=== PATIENT | female | born 1940 | race Caucasian/White ===

== ENCOUNTER 2023-08-07 12:40 | Emergency (ER) | payer MEDICARE, OTHER, SELFPAY ==
[2023-08-07 12:48] VITALS: BP 229/109
[2023-08-07 13:16] VITALS: BMI 20.9
[2023-08-07 13:17] VITALS: BP 204/101
[2023-08-07 13:51] LABS: % Basophils 0.4 % (0-2); % Eosinophils 0.4 % (0-6); % Immature Granulocytes 0.3 % (0-0.5); % Monocytes 8.1 % (1.7-9.3); % Neutrophils 70.8 % (42.2-75.2); Absolute Lymphocytes 1.4 10^3/uL (1.2-3.4); Absolute Monocytes 0.6 10^3/uL (0.1-0.6); Absolute Neutrophils 4.9 10^3/uL (1.4-6.5); Hematocrit 40.4 % (37.0-47.0); Hemoglobin 14.3 g/dL (12.0-16.0); Mean Corp Hgb Conc. 35.4 g/dL (33.0-37.0); Mean Corpuscular Hgb 32.3 pg (27.0-31.0); Mean Corpuscular Volume 91.2 fL (81.0-99.0); Nucleated Red Blood Cells % 0 %; Platelet Count 212 10^3/uL (130-400); Red Blood Cell Count 4.43 10^6/uL (4.20-5.40); White Blood Cell Count 6.9 10^3/uL (4.8-10.8)
[2023-08-07 14:00] VITALS: BP 199/77
[2023-08-07 14:23] VITALS: BP 215/91
[2023-08-07 15:00] VITALS: BP 216/82
[2023-08-07 15:00] LABS: Blood Urea Nitrogen 12 mg/dl (7-17); Calcium 8.8 mg/dl (8.4-10.2); Carbon Dioxide 25 mmol/L (22-30); Chloride 100 mmol/L (98-107); Estimated Creatinine Clearance 67 ml/min; Glucose 91 mg/dl (70-99); Sodium 131 mmol/L (135-145); eGFR > 60.00
--- NOTE | 2023-08-07 15:11 | ED.GENMED ---
History of Present Illness
General
Chief Complaint: Heart Rate Problem
Time Seen by Provider: 08/07/23 13:24
Travel History
Have you had any contact with someone who has COVID-19?: No
Do you have any symptoms of coronavirus? Fever > 100 degrees, chills, cough, shortness of breath, sore throat, loss of taste or smell, muscle aches, or headache?: No
History of Present Illness
History of Present Illness:
82-year-old female with history of hypertension presents to the emergency department for evaluation of heart palpitations. To follow with her primary care physician over the past 4 to 6 months for uncontrolled hypertension. Currently on diltiazem
120 mg controlled release. While at her doctor's office today she noted having heart palpitations and due to and unavailable EKG machine she was sent to the ER to evaluate for cardiac arrhythmia. Currently has no symptoms. Denies chest pain or
dyspnea. Denies any stimulant drug use.
Review of Systems
Review of Systems
Allergies reviewed?: Yes
All Other Systems: ROS reviewed and negative except as documented in HPI and ROS
Phy Exam
Physical Exam
Physical Exam:
GEN: Well appearing, NAD, WDWN
Eyes: PERRLA, EOMs intact, no scleral icterus
HENT: NCAT, oral mucosa moist, no JVD
Lungs: CTAB, no wheezes, rales, rhonchi, normal chest wall excursion
Cardiac: RRR, 2/6 systolic ejection murmur
Abdomen: S, NT, ND, NABS, no masses or hepatosplenomegaly
Neuro: AO x 3, no focal deficits to BUE/BLE, normal sensation throughout
MSK: No gross deformity or ecchymosis. No edema. No digital clubbing
Skin: No rashes, petechiae. Normal color, no pallor or jaundice.
Psych: Calm, cooperative, proper hygiene
Course
Orders/Labs/Results
Orders:
Orders
08/07/23 12:47
EKG [Electrocardiogram (*1)] Urgent
Reason for Study: Atrial Fibrillation
EKG- Treatment ONCE
08/07/23 13:37
CBC/With Diff [Complete Blood Count/With Diff] Urgent
08/07/23 14:25
Basic Metabolic Panel Urgent
Abnormal Lab Results
08/07/23 08/07/23
13:37 14:25
MCH 32.3 H pg
(27.0-31.0)
MPV 11.0 H fL
(7.4-10.4)
Lymphocytes % 20.0 L %
(20.5-51.1)
Sodium 131 L mmol/L
(135-145)
08/07/23 13:37
08/07/23 14:25
Vital Signs
Initial and Last Documented VS:
Initial Vital Signs
Temp Pulse Resp BP Pulse Ox
98.0 F 100 16 229/109 98
08/07/23 12:48 08/07/23 12:48 08/07/23 12:48 08/07/23 12:48 08/07/23 12:48
Last Documented Vital Signs
Temp Pulse Resp BP Pulse Ox
98.0 F 79 17 204/101 98
08/07/23 12:48 08/07/23 13:45 08/07/23 13:45 08/07/23 13:17 08/07/23 13:45
MDM/Problems Addressed
MDM/Problems Addressed:
Patient with no evidence for cardiac dysrhythmia here. She has noted to have a systolic murmur that needs outpatient cardiology follow-up. Holter monitor as an outpatient given the transient nature of her symptoms. She is markedly hypertensive
here but with no evidence for hypertensive urgency requiring emergent antihypertensive use. Patient will be uptitrated on her outpatient antihypertensives and recommend close primary care as well as cardiology follow-up
Comment
Comment:
EKG independently interpreted by me shows a normal sinus rhythm at a rate of [address] changes concerning for ischemia
*Critical Care Note
Total Time (30-74mins, 75-104mins- exclusive of procedures): Not Applicable
ED Attending Note
-
Portions of this chart may have been created with voice recognition software.� Occasional wrong word or��sound alike� substitutions may have occurred due to the inherent limitations of voice recognition software.
Discharge Plan
Departure
Patient Disposition: Home (Routine Discharge)
Date of Disposition: 08/07/23
Time of Disposition: 15:11
Patient with high blood pressure during this ER visit?: Yes
Discharge Problem:
Heart palpitations, Hypertension, uncontrolled
Instructions: Palpitations (DC), BLOOD PRESSURE
Prescriptions:
New
diltiazem HCl 180 mg capsule,extended release 24hr
180 mg PO DAILY Qty: 30 0RF
Referrals:
Bayron Dumont MD [Family Provider] -
Jaiden Diaz MD [Active] -
Interventions
Interventions:
*Risk Screen - Suicide Last Done: 08/07/23 13:52
*Neglect/Abuse Screening Last Done: 08/07/23 13:52
ED- Fall Risk Assessment Last Done: 08/07/23 13:52
*ED COVID-19 Vaccine History Last Done: 08/07/23 12:48
ED- Cardiac Assessment Last Done: 08/07/23 13:52
ED- Pulmonary Assessment Last Done: 08/07/23 13:52
== END 2023-08-07 16:22 | disposition home or self-care (01) ==
LOC: EMR 12:40
PROVIDERS: EMERGENCY PHYSICIAN Emergency Medicine; FAMILY PHYSICIAN Family Medicine
DX: R00.2 Palpitations (principal); R01.1 Cardiac murmur, unspecified; I10 Essential (primary) hypertension
CPT/HCPCS: 99284; 80048; 85025; 93005

== ENCOUNTER → 2023-09-13 15:48 | Outpatient (REF) | payer MEDICARE, OTHER, SELFPAY | LOC: HWRCS 15:48 | PROVIDERS: ATTENDING PHYSICIAN Internal Medicine Cardiovascular Disease; FAMILY PHYSICIAN Family Medicine | DX: R06.02 Shortness of breath (principal) | CPT/HCPCS: 93306 ==

== ENCOUNTER 2023-09-16 07:17 | Day surgery (SDC) | payer MEDICARE, OTHER, SELFPAY | END 2023-09-16 08:00 | disposition home or self-care (01) | LOC: CATH 07:17 | PROVIDERS: ATTENDING PHYSICIAN Nuclear Medicine Nuclear Cardiology; FAMILY PHYSICIAN Family Medicine; OTHER PHYSICIAN Internal Medicine Cardiovascular Disease | DX: Z53.9 Procedure and treatment not carried out, unspecified reason (principal); I10 Essential (primary) hypertension; R00.2 Palpitations | CPT/HCPCS: 93005 ==

== ENCOUNTER 2023-09-22 10:50 | Emergency (ER) | payer MEDICARE, OTHER, SELFPAY ==
[2023-09-22 11:09] VITALS: BP 134/83
[2023-09-22] MEDS: NSS 1000 IV (12:11)
--- NOTE | 2023-09-22 12:20 | ED.GENMED ---
History of Present Illness
General
Chief Complaint: Weakness
Source: patient and family
Time Seen by Provider: 09/22/23 11:52
Travel History
Have you had any contact with someone who has COVID-19?: No
Do you have any symptoms of coronavirus? Fever > 100 degrees, chills, cough, shortness of breath, sore throat, loss of taste or smell, muscle aches, or headache?: Yes
Symptoms:: +COVID
History of Present Illness
History of Present Illness:
82-year-old female with past medical history of atrial fibrillation and hypertension presenting to the emergency department for evaluation after testing positive for COVID on Wednesday, symptoms questionably started on , has had continued
generalized weakness and fatigue with a very mild cough. Patient reports this is her first time having COVID, noting that she has gotten all of her vaccinations and booster shots. She contacted her automatic furnace operator to see if she would be a candidate
for Paxlovid however due to her being anticoagulated it was recommended that she not take any antiviral medications for COVID. Patient and daughter were concerned given her cardiac history so they came to the ER today for further evaluation patient
does admit to some decreased p.o. intake to both solids and liquids during her infection. Has not had any fevers. Patient and daughter were also concerned as patient's is on hospice and they were concerned for possible spread of infection
to her .
Of note, patient was scheduled for a synchronized electrical cardioversion for A-fib this past but when she got to the procedure she was found to be in a normal sinus rhythm so the procedure was aborted.
Past History
Past History
ED Past Medical History: Arrthythmia, HTN and Hypothyroidism
ED Past Surgical History: Cholecystectomy
Social History
Tobacco: Non-smoker
Alcohol: None
Drug: None
Personal:
Living: with family
Review of Systems
Review of Systems
All Other Systems: ROS reviewed and negative except as documented in HPI and ROS
Phy Exam
Physical Exam
Physical Exam:
GENERAL: Alert , in no apparent distress
EYE: conjunctiva clear
NECK: Supple
ENT: o/p clr, mmm.
CARDIAC: Irregularly irregular, rate controlled
LUNGS: Clear breath sounds bilaterally, no acute respiratory distress, no wheezes/rales/rhonchi
NEUROLOGICAL: Alert and oriented
SKIN: Warm and dry, skin intact.
MUSCULOSKELETAL: well perfused.
PSYCH: Normal and appropriate interaction.
Scores
Heart Failure Risk
Heart Failure Risk Score: Not Applicable
Heart Score for Chest Pain Patients
STEMI patient?: Not applicable
Withdrawal Assessment of Alcohol
Withdrawal Assessment Completed?: Not applicable
Course
Orders/Labs/Results
Orders:
Orders
09/22/23 12:08
0.9% Sodium Chloride 1000 ml [Nss] 1,000 ml IV BOLUS
09/22/23 12:10
Complete Blood Count/With Diff Urgent
09/22/23 13:09
Comprehensive Metabolic Panel Urgent
Abnormal Lab Results
09/22/23 09/22/23
12:10 13:09
WBC 4.7 L 10^3/uL
(4.8-10.8)
MCH 32.3 H pg
(27.0-31.0)
Monocytes % 10.0 H %
(1.7-9.3)
Sodium 127 L mmol/L
(135-145)
Potassium 3.4 L mmol/L
(3.5-5.1)
Chloride 95 L mmol/L
(98-107)
Total Protein 6.0 L g/dl
(6.3-8.2)
09/22/23 12:10
09/22/23 13:09
Vital Signs
Initial and Last Documented VS:
Initial Vital Signs
Temp Pulse Resp BP Pulse Ox
97.6 F 79 20 134/83 100
09/22/23 11:09 09/22/23 11:09 09/22/23 11:09 09/22/23 11:09 09/22/23 11:09
Last Documented Vital Signs
Temp Pulse Resp BP Pulse Ox
97.6 F 81 18 128/72 99
09/22/23 11:09 09/22/23 14:01 09/22/23 14:01 09/22/23 14:01 09/22/23 14:01
MDM/Problems Addressed
Differential Diagnosis Includes:
COVID, A-fib, electrolyte disturbance
MDM/Problems Addressed:
82-year-old female presenting emergency department for evaluation after testing positive for COVID this past Wednesday, symptoms started Wednesday. At this time she is not a candidate for any antiviral medications given she is on day 6 of her
infection. Patient is otherwise hemodynamically stable, normotensive, no respiratory distress and has normal oxygen saturation. Discussed further management of COVID with patient and daughter. At this time I suspect patient will only need
supportive care. She is likely back into A-fib which could have been precipitated by her COVID infection however at this time would defer cardioversion given her current illness as well as given she seems to have paroxysmal A-fib it would be
unlikely that this would keep patient in a normal sinus rhythm. Will treat with fluids and check labs at patient's request. Anticipate discharge home.
Chronic conditions affecting care: Arrhythmia
Acute Exacerbation and/or Progression of Chronic Illness: Arrhythmia
*Pulse Oximetry
Patient hypoxic: no
*Critical Care Note
Total Time (30-74mins, 75-104mins- exclusive of procedures): Not Applicable
Data Reviewed
Review of Other/Old Records Reveals: Labs
Source: patient and family
Comment
Comment:
Patient's sodium was mildly low at 127. Overall she is able to ambulate but this could be a potential cause of her weakness. Advise she follow-up with her primary care provider once feeling better to have this repeated. Patient is aware of return
precautions emergency department. She will also follow-up with her automatic furnace operator for her A-fib. Patient and family aware of return precautions emergency department.
ED Attending Note
-
Portions of this chart may have been created with voice recognition software.� Occasional wrong word or��sound alike� substitutions may have occurred due to the inherent limitations of voice recognition software.
Discharge Plan
Departure
Patient Disposition: Home (Routine Discharge)
Date of Disposition: 09/22/23
Time of Disposition: 13:29
Patient with high blood pressure during this ER visit?: No
Discharge Problem:
COVID-19
Instructions: COVID-19 (DC)
Prescriptions:
No Action
diltiazem HCl 180 mg capsule,extended release 24hr
180 mg PO DAILY Qty: 30 0RF
Referrals:
NONE,* [Family Provider] -
Interventions
Interventions:
*Risk Screen - Suicide Last Done: 09/22/23 11:20
*General Assessment Last Done: 09/22/23 11:20
*Neglect/Abuse Screening Last Done: 09/22/23 11:20
ED- Fall Risk Assessment Last Done: 09/22/23 11:20
*ED COVID-19 Vaccine History Last Done: 09/22/23 11:09
*Nursing Disposition Last Done: 09/22/23 15:05
ED- Cardiac Assessment Last Done: 09/22/23 11:20
ED- Neurological Assessment Last Done: 09/22/23 11:20
ED- Pulmonary Assessment Last Done: 09/22/23 11:20
Discharge Date and Time
Print Language: ARABIC
[2023-09-22 12:24] LABS: % Basophils 0.2 % (0-2); % Eosinophils 0.2 % (0-6); % Immature Granulocytes 0.4 % (0-0.5); % Lymphocytes 29.1 % (20.5-51.1); % Neutrophils 60.1 % (42.2-75.2); Absolute Lymphocytes 1.4 10^3/uL (1.2-3.4); Absolute Monocytes 0.5 10^3/uL (0.1-0.6); Absolute Neutrophils 2.8 10^3/uL (1.4-6.5); Hematocrit 39.8 % (37.0-47.0); Hemoglobin 14.3 g/dL (12.0-16.0); Mean Corp Hgb Conc. 35.9 g/dL (33.0-37.0); Mean Corpuscular Hgb 32.3 pg (27.0-31.0); Mean Corpuscular Volume 89.8 fL (81.0-99.0); Mean Platelet Volume 10.2 fL (7.4-10.4); Nucleated Red Blood Cells % 0 %; Platelet Count 241 10^3/uL (130-400); Red Blood Cell Count 4.43 10^6/uL (4.20-5.40); Red Cell Dist. Width 12.5 % (11.5-14.5); White Blood Cell Count 4.7 10^3/uL (4.8-10.8)
[2023-09-22 12:29] VITALS: BP 131/74
[2023-09-22 13:39] LABS: ALT (SGPT) 26 U/L (0-35); AST (SGOT) 27 U/L (14-36); Albumin 3.5 g/dl (3.5-5.0); Alkaline Phosphatase 86 U/L (38-126); Blood Urea Nitrogen 14 mg/dl (7-17); Calcium 8.9 mg/dl (8.4-10.2); Carbon Dioxide 25 mmol/L (22-30); Chloride 95 mmol/L (98-107); Glucose 97 mg/dl (70-99); Potassium 3.4 mmol/L (3.5-5.1); Sodium 127 mmol/L (135-145); Total Bilirubin 0.8 mg/dl (0.2-1.3); eGFR > 60.00
[2023-09-22 14:01] VITALS: BP 128/72
== END 2023-09-22 15:31 | disposition home or self-care (01) ==
LOC: EMR 10:50
PROVIDERS: Physician Assistant Medical; EMERGENCY PHYSICIAN Emergency Medicine
DX: U07.1 COVID-19 (principal); I48.91 Unspecified atrial fibrillation; I10 Essential (primary) hypertension; E03.9 Hypothyroidism, unspecified; Z90.49 Acquired absence of other specified parts of digestive tract
CPT/HCPCS: 99283; 96360; 80053; 85025

== ENCOUNTER 2023-10-11 20:34 | Inpatient (IN) | payer MEDICARE, OTHER, SELFPAY ==
[2023-10-11] VITALS (26 sets, daily range): BP systolic 83–151; BP diastolic 57–102
[2023-10-11 15:28] LABS: % Basophils 0.5 % (0-2); % Eosinophils 0.6 % (0-6); % Immature Granulocytes 0.2 % (0-0.5); % Monocytes 9.2 % (1.7-9.3); % Neutrophils 62.5 % (42.2-75.2); Absolute Eosinophils 0.1 10^3/uL (0-0.7); Absolute Lymphocytes 2.2 10^3/uL (1.2-3.4); Absolute Monocytes 0.7 10^3/uL (0.1-0.6); Hematocrit 41.1 % (37.0-47.0); Hemoglobin 14.1 g/dL (12.0-16.0); Mean Corp Hgb Conc. 34.3 g/dL (33.0-37.0); Mean Corpuscular Hgb 31.9 pg (27.0-31.0); Mean Platelet Volume 11.3 fL (7.4-10.4); Nucleated Red Blood Cells % 0 %; Platelet Count 251 10^3/uL (130-400); Red Blood Cell Count 4.42 10^6/uL (4.20-5.40); Red Cell Dist. Width 12.5 % (11.5-14.5)
--- NOTE | 2023-10-11 15:28 | ED.GENMED ---
History of Present Illness
<ROLO Carvajal - Last Filed: 10/11/23 19:29>
General
Chief Complaint: Heart Rate Problem
Source: patient
Exam Limitations: none
Time Seen by Provider: 10/11/23 14:47
Nursing documentation reviewed up to this point in time: agreed with
Travel History
Have you had any contact with someone who has COVID-19?: No
Do you have any symptoms of coronavirus? Fever > 100 degrees, chills, cough, shortness of breath, sore throat, loss of taste or smell, muscle aches, or headache?: No
History of Present Illness
History of Present Illness:
83 yr old female with past medical history of A-fib (on Eliquis and Cardizem) and hypothyroidism presents to the ER for evaluation. Patient has been fatigued since having COVID 25 d ago. She thought it may be related to her Cardizem dose and call
cardiology who had her take her blood pressure and she found that her heart rate was in the 140s.
She apparently is in have Afib - but is not aware when she is in it. She denies shortness of breath however she has had fatigue. She
Past History
<ROLO Carvajal - Last Filed: 10/11/23 19:29>
Past History
ED Past Medical History: Arrthythmia, HTN and Hypothyroidism
ED Past Surgical History: Cholecystectomy
Social History
Tobacco: Non-smoker
Alcohol: None
Drug: None
Personal:
Living: with family
Review of Systems
<ROLO Carvajal - Last Filed: 10/11/23 19:29>
Review of Systems
Allergies reviewed?: Yes
Other source history: family
All Other Systems: ROS reviewed and negative except as documented in HPI and ROS
Constitutional: Reports no symptoms; Denies fever, fatigue or chills
EENT: Reports no symptoms
Respiratory: Reports no symptoms
Cardiac: Reports no symptoms; Denies chest pain or palpitations
ABD/GI: Reports no symptoms
: Reports no symptoms
Musculoskeletal: Reports no symptoms
Skin: Reports no symptoms
Neurological: Reports no symptoms
Psychiatric: Reports no symptoms
Phy Exam
<ROLO Carvajal - Last Filed: 10/11/23 19:29>
General Physical Exam
General Presentation: no apparent distress
General age: appears stated age
General Skin: warm and dry
General Habitus: normal
General Mental: alert
General Hydration: appears well hydrated
Cardiovascular Exam
Cardiovascular Exam: irregularly irregular
Pulmonary Exam
Pulmonary Exam: lungs clear
Neurological Exam
Neurological Exam: alert and oriented x3
Musculoskeletal Exam
Musculoskeletal Exam: full ROM
Skin Exam
Skin Exam: normal color and warm/dry
Psychiatric Exam
Psychiatric Exam: normal mood/affect
Course
<ROLO Carvajal - Last Filed: 10/11/23 19:29>
Orders/Labs/Results
Orders:
Orders
10/11/23 13:48
EKG [Electrocardiogram (*1)] Urgent
Reason for Study: Tachycardia
10/11/23 13:49
EKG- Treatment ONCE
10/11/23 15:11
Basic Metabolic Panel Urgent
Complete Blood Count/With Diff Urgent
Free T4 Urgent
TSH Reflex To Free T4 Urgent
Comment: TSH REFLEX ADDED ON BY FLOOR 3:40PM 10-11-23
10/11/23 15:38
0.9% Sodium Chloride 1000 ml [Nss] 1,000 ml IV BOLUS
10/11/23 15:40
Add On- LAB Urgent
Tests Added?: tsh with reflexive T4
10/11/23 15:59
Diltiazem HCl [Cardizem] 10 mg IV NOW STA
10/11/23 16:00
LFT [Dqsmm-Lkgs-Mprwgsh] Urgent
Potassium Urgent
Diltiazem 125 mg/125 ml Nss [Cardizem] 125 mg in 125 ml IV PER PROTOCOL
Initial dose in mg/hr, then titrate:: 5
Titrate to keep:: Heart rate 80-100 bpm
Titrate by mg/hr:: 5 mg/hr
Frequency of titrations (minutes):: 15
Maximum dose in mg/hr:: 15
10/11/23 17:42
Propofol [Diprivan] 20 ml .ROUTE .STK-MED
10/11/23 18:22
Diltiazem HCl [Cardizem] 15 mg IV NOW STA
Abnormal Lab Results
10/11/23
15:11
MCH 31.9 H pg
(27.0-31.0)
MPV 11.3 H fL
(7.4-10.4)
Absolute Monos (auto) 0.7 H 10^3/uL
(0.1-0.6)
Sodium 132 L mmol/L
(135-145)
Chloride 97 L mmol/L
(98-107)
TSH (Reflex) 7.24 H uIU/ml
(0.47-4.68)
10/11/23 15:11
10/11/23 16:00
Vital Signs
Initial and Last Documented VS:
Initial Vital Signs
Temp Pulse Resp BP Pulse Ox
98.2 F 163 18 151/99 100
10/11/23 13:45 10/11/23 13:45 10/11/23 13:45 10/11/23 13:45 10/11/23 13:45
Last Documented Vital Signs
Temp Pulse Resp BP Pulse Ox
98.2 F 77 19 111/65 98
10/11/23 18:05 10/11/23 19:00 10/11/23 19:00 10/11/23 19:00 10/11/23 19:00
Imaging Account Manager consulted with Physician
Imaging Account Manager consulted with physician?: Yes
Name of Physician Consulted: mady
<Ham Ray, DO - Last Filed: 10/11/23 19:34>
Orders/Labs/Results
Orders:
Orders
10/11/23 13:48
EKG [Electrocardiogram (*1)] Urgent
Reason for Study: Tachycardia
10/11/23 13:49
EKG- Treatment ONCE
10/11/23 15:11
Basic Metabolic Panel Urgent
Complete Blood Count/With Diff Urgent
Free T4 Urgent
TSH Reflex To Free T4 Urgent
Comment: TSH REFLEX ADDED ON BY FLOOR 3:40PM 10-11-23
10/11/23 15:38
0.9% Sodium Chloride 1000 ml [Nss] 1,000 ml IV BOLUS
10/11/23 15:40
Add On- LAB Urgent
Tests Added?: tsh with reflexive T4
10/11/23 15:59
Diltiazem HCl [Cardizem] 10 mg IV NOW STA
10/11/23 16:00
LFT [Ehndv-Hyjd-Uwhcipc] Urgent
Potassium Urgent
Diltiazem 125 mg/125 ml Nss [Cardizem] 125 mg in 125 ml IV PER PROTOCOL
Initial dose in mg/hr, then titrate:: 5
Titrate to keep:: Heart rate 80-100 bpm
Titrate by mg/hr:: 5 mg/hr
Frequency of titrations (minutes):: 15
Maximum dose in mg/hr:: 15
10/11/23 17:42
Propofol [Diprivan] 20 ml .ROUTE .STK-MED
10/11/23 18:22
Diltiazem HCl [Cardizem] 15 mg IV NOW STA
Abnormal Lab Results
10/11/23
15:11
MCH 31.9 H pg
(27.0-31.0)
MPV 11.3 H fL
(7.4-10.4)
Absolute Monos (auto) 0.7 H 10^3/uL
(0.1-0.6)
Sodium 132 L mmol/L
(135-145)
Chloride 97 L mmol/L
(98-107)
TSH (Reflex) 7.24 H uIU/ml
(0.47-4.68)
10/11/23 15:11
10/11/23 16:00
Vital Signs
Initial and Last Documented VS:
Initial Vital Signs
Temp Pulse Resp BP Pulse Ox
98.2 F 163 18 151/99 100
10/11/23 13:45 10/11/23 13:45 10/11/23 13:45 10/11/23 13:45 10/11/23 13:45
Last Documented Vital Signs
Temp Pulse Resp BP Pulse Ox
98.2 F 77 19 111/65 98
10/11/23 18:05 10/11/23 19:00 10/11/23 19:00 10/11/23 19:00 10/11/23 19:00
Procedures
<ROLO Carvajal - Last Filed: 10/11/23 19:29>
Cardioversion
Time out completed at (validating right patient & procedure): 18:06
History of difficult intubation: No
Airway free of obstruction: Yes
Patient has a gag reflex: Yes
Patient is able to open mouth: Yes
Patient has no dentures: Yes
Patient has no loose teeth: Yes
Medication administered by Provider during Moderate Sedation: IV Propofol (mg)
Total dose administered: 60
Time drug administered: 18:06
Start Time: 18:06
Stop Time: 18:16
<Ham Ray DO - Last Filed: 10/11/23 19:34>
Cardioversion
Indication:: Afib
Performed by:: Dr Ray
Synchronized?: Yes
Energy Used: 150 joules
Number of attempts: 3
Successful?: No
Complications: pt initially converted to NSR then back to AF
ASA Risk Score: Class II
Any reaction or bad outcome to prior sedation/anesthesia?: No history of a reaction
Sedation level to be attained: moderate
Chart and allergies reviewed: Yes
Patient reassessed prior to sedation: Yes
<ROLO Carvajal - Last Filed: 10/11/23 19:29>
MDM/Problems Addressed
Differential Diagnosis Includes:
Not limited to rapid A-fib
MDM/Problems Addressed:
Patient is an 83-year-old female with history of A-fib on Eliquis and Cardizem has not missed a dose of Eliquis presented in rapid A-fib. She was unaware and had no palpitations chest pain or shortness of breath took her blood pressure and found
that her heart rate was high. She was sent by cardiology patient presented here in uncontrolled A-fib. I spoke with cardiology initially Dr. Vasquez. Patient was placed on Cardizem drip did request and mention cardioversion. Patient was
cardioverted with moderate sedation with ED physician at bedside. Patient was cardioverted 3 times however unsuccessful. Patient was placed back on Cardizem given second bolus will need admission. Dr. Galan of cardiology made aware does recommend
admitting to the hospital service.
<ROLO Carvajal - Last Filed: 10/11/23 19:29>
*Pulse Oximetry
Patient hypoxic: no
*EKG
Interpreted by ED Provider?: Yes
Heart Rate: 131
Rate: tachycardiac
Rhythm: a-fib
Ischemia: no ischemia
*Critical Care Note
Total Time (30-74mins, 75-104mins- exclusive of procedures): Not Applicable
<Ham Ray DO - Last Filed: 10/11/23 19:34>
*Critical Care Note
Total Time (30-74mins, 75-104mins- exclusive of procedures): 45 minutes
<ROLO Carvajal - Last Filed: 10/11/23 19:29>
Patient Management
Discussion with other providers: Type Cutter (cardiology DR Dias/Dr Galan )
ED Attending Note
<ROLO Carvajal - Last Filed: 10/11/23 19:29>
-
Portions of this chart may have been created with voice recognition software.� Occasional wrong word or��sound alike� substitutions may have occurred due to the inherent limitations of voice recognition software.
<Ham Ray DO - Last Filed: 10/11/23 19:34>
ED Attending Note
Patient seen and examined by attending physician: Yes
I performed the substantive portion of visit, reviewed & personally made and approve the management plan that is documented in note by myself or EDI.: Yes
ED Attending Note:
83-year-old female presents with A-fib. Patient states she really does not feel much symptoms but noted on her blood pressure cuff. Family states that she has been short of breath with exertion. Exam: Awake and alert, rapid A-fib noted on
air sampling and monitoring. Assessment and plan: Attempted cardioversion. Patient was cardioverted back to sinus rhythm but quickly returned to A-fib and would not hold. Continue IV Cardizem and admit
Discharge Plan
Departure
Patient Disposition: Admit
Date of Disposition: 10/11/23
Time of Disposition: 19:28
Admit to: Med/Surg
Admit to doctor: hospitalist
Presentation/result/management discussed w/ accepting MD/DO: Hospitalist
Patient with high blood pressure during this ER visit?: No
Condition: Fair
Covid-19: Not Applicable
Discharge Problem:
Uncontrolled atrial fibrillation
Prescriptions:
No Action
acetaminophen 325 mg Tablet
650 mg PO Q6H PRN (Reason: mild pain/fever)
levothyroxine 75 mcg tablet
75 mcg PO DAILY
buprenorphine 10 mcg/hour patch weekly
10 mcg transdermal TH
Patient Comments:
10/11/2023: last filled 09/20/23, 4 patches for 28 days from [id number]
Eliquis 5 mg tablet
5 mg PO BID
diltiazem HCl 180 mg capsule,extended release 24hr
180 mg PO BID
Referrals:
Bayron Dumont MD [Family Provider] -
Interventions
Interventions:
*Risk Screen - Suicide Last Done: 10/11/23 13:45
*General Assessment Last Done: 10/11/23 13:45
*Neglect/Abuse Screening Last Done: 10/11/23 13:45
ED- Fall Risk Assessment Last Done: 10/11/23 15:00
ED- Cardiac Assessment Last Done: 10/11/23 15:00
ED- Pulmonary Assessment Last Done: 10/11/23 15:00
Discharge Date and Time
Print Language: GUATEMALAN
[2023-10-11 15:39] LABS: Blood Urea Nitrogen 16 mg/dl (7-17); Calcium 9.6 mg/dl (8.4-10.2); Carbon Dioxide 26 mmol/L (22-30); Chloride 97 mmol/L (98-107); Glucose 97 mg/dl (70-99); Sodium 132 mmol/L (135-145); eGFR > 60.00
[2023-10-11] MEDS: NSS 1000 IV (15:54)
[2023-10-11] MEDS: CARDIZEM 125 IV (16:03)
[2023-10-11] MEDS: CARDIZEM 10 MG IV (16:04)
[2023-10-11 16:20] LABS: ALT (SGPT) 17 U/L (0-35); AST (SGOT) 21 U/L (14-36); Albumin 3.7 g/dl (3.5-5.0); Alkaline Phosphatase 80 U/L (38-126); Direct Bilirubin 0.4 mg/dl (0.0-0.4); Potassium 4.3 mmol/L (3.5-5.1); Total Bilirubin 0.7 mg/dl (0.2-1.3); Total Protein 6.3 g/dl (6.3-8.2)
[2023-10-11 17:09] LABS: TSH Reflex To Free T4 7.24 uIU/ml (0.47-4.68)
[2023-10-11 17:39] LABS: Free T4 1.64 ng/dl (0.78-2.19)
[2023-10-11] MEDS: CARDIZEM 15 MG IV (18:31)
--- NOTE | 2023-10-11 20:22 | HPS.HSE ---
Addendum entered and electronically signed by Homero Perkins DO 10/11/23 20:59:
Patient seen and examined independently. Agree with findings and plan as set forth by Staci Mike PA-C.
Patient is an 83y F with PMH significant for A-Fib, hypothyroidism and spinal stenosis who presents to ED complaining of fatigue and tachycardia. Patient has been dealing with symptoms of worsening fatigue for the past month or so. She had
COVID-19 infection at the end of August. Patient spoke with Cardiology this evening and checked her heart rate at home which was reportedly 140 bpm. She was advised to present to the ED for further evaluation.
In the ED, patient underwent DCCV x 3 attempts without lasting success. She has since been started on diltiazem infusion.
Ass:
Paroxysmal A-Fib / Flutter with Rapid Ventricular Response
Hypothyroidism
Spinal Stenosis
Chronic Pain / Chronic Opioid Dependence secondary to the above
Plan:
Admit to monitored bed.
Continue IV diltiazem and titrate as needed for adequate rate control.
Continue Eliquis for stroke risk reduction.
Cardiology evaluation.
Continue usual home medications.
Original Note:
Family Physician
-
Family Physician: Bayron Dumont
Chief Complaint
-
Weakness
History of Present Illness
This is a 83- year-old female with a past medical history of A-fib on Eliquis, hypothyroidism, and spinal stenosis who presents to the ED for ongoing fatigue x 1 month and elevated heart rate. She reports feeling fatigued since she had COVID at the
end of August. Due to her persistent symptom she called her secret service agent. The office instructed her to check her heart rate, which was elevated in the 140's. Per their advise, patient presented to the ED for further evaluation. ED workup revealed
patient in A-fib and rapid ventricular response. ED attempted to cardiovert the patient 3 times, but each time she quickly returned to a-fib. She denies palpitations, chest pain, or shortness of breath.
Medical History
Past Medical History
Past Medical History: Reports Other
Additional Past Medical History:
Paroxysmal Atrial Fibrillation
Hypothyroidism
Chronic Pain with Opioid Dependence
Past Surgical History: Reports Other
Additional Past Surgical History:
Cholecystectomy
Social History
Tobacco: Former Smoker (Quit in 1970s)
Alcohol: Occasional (One glass socially)
Personal:
Family History
Family History: Not pertinent
Allergies / Home Medications
Allergies reflects when Allergies were last updated in [facility].
Home Medications with original date entered in [facility]
Allergy/Medication List:
Allergies
Allergy/AdvReac Type Severity Reaction Status Date / Time
codeine Allergy agitation Verified 10/11/23 13:45
Home Medications
acetaminophen 325 mg tablet 650 mg PO Q6H PRN mild pain/fever 10/11/23
apixaban 5 mg tablet (Eliquis) 5 mg PO BID Blood Clot Prevention/Tx 10/11/23
buprenorphine 10 mcg/hour weekly transdermal patch 10 mcg transdermal TH Pain 10/11/23
diltiazem HCl 180 mg capsule,extended release 24 hr 180 mg PO BID Blood Pressure 10/11/23
levothyroxine 75 mcg tablet 75 mcg PO DAILY Thyroid 10/11/23
Review of Systems
-
A 12 point ROS was completed and negative except as noted: Yes
Constitutional: Denies Fever or Chills
Respiratory: Denies Cough or Trouble Breathing
Cardiac: Denies Chest Pain or Palpitations
Physical Exam
Vital Signs
Vital Signs
Temp Pulse Resp BP Pulse Ox
98.2 F 77 19 111/65 98
10/11/23 18:05 10/11/23 19:00 10/11/23 19:00 10/11/23 19:00 10/11/23 19:00
Physical Exam
General: Well Developed, Well Nourished, Comfortable and Conversant
HEENT: Anicteric and Moist mucous membranes
Respiratory: Clear and Non Labored Respirations
Cardiac: S1/S2 and Irregular Rhythm; No Tachycardia
GI: Soft and Non Tender
Musculoskeletal: No Clubbing, No Cyanosis and No Edema
Skin: Warm and Dry
Neuro: Awake, Alert, Oriented and Nonfocal/grossly intact
Psych: Calm
Laboratory Results
-
10/11/23 15:11
10/11/23 16:00
Laboratory Results
Total Bilirubin 0.7 mg/dl (0.2-1.3) 10/11/23 16:00
AST 21 U/L (14-36) 10/11/23 16:00
ALT 17 U/L (0-35) 10/11/23 16:00
Alkaline Phosphatase 80 U/L (38-126) 10/11/23 16:00
Data Reviewed
-
Lab Data: Labs Reviewed by me
Impression/Plan
-
Atrial Fibrillation with Rapid Ventricular Response
-Consult Cardiology
-Continue Cardizem drip
-Continue oral Cardizem as prior to admission
-Continue Eliquis
Hypothyroidism
-Continue Synthroid
Chronic Pain secondary to Spinal Stenosis with Opioid Dependence
-Continue Butrans Patch
DVT proph: Eliquis
Code Status: Full Code
[2023-10-11] MEDS: ELIQUIS 5 MG PO (22:48)
[2023-10-11] MEDS: CARDIZEM CD 180 MG PO (22:48)
[2023-10-12] VITALS (13 sets, daily range): BP systolic 101–131; BP diastolic 49–80; PULSE 77–106; O2SAT 97–99
--- NOTE | 2023-10-12 00:32 | PTCARENOTE ---
Pt rec'd from ED awake,alert on stretcher. No c/o pain or palpitations at this time. Ht rate 120's or higher with activity 80's at rest. Cardizem gtt at 10 mg/hr. Afib on telemetry.
[2023-10-12] MEDS: TYLENOL 650 MG PO ×2 (03:59→15:43)
[2023-10-12] MEDS: CARDIZEM 125 IV (04:02)
[2023-10-12] MEDS: SYNTHROID 75 MCG PO (04:02)
--- NOTE | 2023-10-12 04:24 | PTCARENOTE ---
Pt remains in controlled afib. C/o H/A medicated with Tylenol. call lang within reach.
[2023-10-12 04:26] LABS: Hematocrit 39.1 % (37.0-47.0); Hemoglobin 13.6 g/dL (12.0-16.0); Mean Corp Hgb Conc. 34.8 g/dL (33.0-37.0); Mean Corpuscular Hgb 32.3 pg (27.0-31.0); Mean Corpuscular Volume 92.9 fL (81.0-99.0); Mean Platelet Volume 10.9 fL (7.4-10.4); Platelet Count 233 10^3/uL (130-400); Red Blood Cell Count 4.21 10^6/uL (4.20-5.40); Red Cell Dist. Width 12.6 % (11.5-14.5); White Blood Cell Count 7.7 10^3/uL (4.8-10.8)
[2023-10-12 04:54] LABS: Blood Urea Nitrogen 12 mg/dl (7-17); Calcium 9.2 mg/dl (8.4-10.2); Carbon Dioxide 21 mmol/L (22-30); Chloride 101 mmol/L (98-107); Estimated Creatinine Clearance 53 ml/min; Glucose 101 mg/dl (70-99); Magnesium 1.7 mg/dl (1.6-2.3); Potassium 3.9 mmol/L (3.5-5.1); Sodium 134 mmol/L (135-145); eGFR > 60.00
--- NOTE | 2023-10-12 07:39 | CON.CAR ---
Addendum entered and electronically signed by Ranjit Oneill MD 10/12/23 11:39:
I saw and examined the patient.
The TIE IN MACHINE OPERATOR or PA's note was reviewed and I agree with the note.
Comment: General: Well developed, well nourished in NAD.
Neck: Supple, no JVD, HJR, carotids +2 B/L, no bruits bilaterally.
Heart: Non displaced PMI, irregular, no murmurs, No S3, S4, no rubs.
Lungs: Clear to auscultation bilaterally, no wheeze, rhonchi, rubs bilaterally,
normal expiratory phase.
Abdomen: Normal bowel sounds, soft, non-tender, non-distended.
Extremities: No clubbing, cyanosis or edema bilaterally.
Neuro: Grossly nonfocal, awake, alert and oriented x3
Isaac has history of atrial fibrillation/flutter on chronic Eliquis, hypertension, hypothyroidism, chronic pain med for spinal stenosis. She was diagnosed with atrial fibrillation/flutter in July 2023 after wearing an outpatient monitor. She
was noted to be in atrial fibrillation during an echocardiogram in August 2023 and Cardizem was increased. She underwent cardioversion to sinus rhythm on September 16, 2023. She then developed COVID and felt poorly and was found to be in A-fib in the
ER. Cardioversion was attempted on 3 different shocks but was unsuccessful.
Will start sotalol and follow QT interval while on sotalol. She will need to be in the hospital for 5 doses which will be completed on 10/13. If she remains in A-fib she will undergo cardioversion and can be discharged afterwards..
Original Note:
Consultation
Consultation Request
Date/Time Consultation Requested: 10/11/2023
Date/Time Consultation Performed: 10/12/2023
Requesting Provider: Dr. Perkins
Performing Provider: Debbie Barrientos PA-C for Dr. Oneill
Reason for Consultation: Atrial fibrillation
Medical History
-
History of Present Illness:
Patient is an 83-year-old female with past medical history of paroxysmal atrial fibrillation flutter, chronic anticoagulation on Eliquis, hypertension, hypothyroidism, chronic pain medication for spinal stenosis who presented to emergency department
10/11/2023 with ongoing fatigue x 1 month as well as palpitations and elevated heart rate. Patient was diagnosed with paroxysmal atrial fibrillation/flutter in late July 2023 after wearing outpatient monitor. She was initiated on anticoagulation
with Eliquis after having a [id number] score of 4. She underwent an echocardiogram on 09/13/2023 and was noted to be in atrial fibrillation with rapid ventricular response at that time. Her outpatient Cardizem dosing was increased to 180 mg twice
a day. She did present for cardioversion on 09/16/2023 and was back in sinus rhythm. Shortly after that she developed COVID-19 infection and has felt quite poorly since then with ongoing fatigue and palpitations. Due to elevated heart rate she
presented to emergency department. She was found to be in atrial fibrillation with rapid ventricular response. Cardioversion x 3 was attempted in emergency department however patient did not maintain sinus rhythm after each attempt. She was
placed on IV diltiazem drip for rate control. TSH 7.24 with free T41.64. Hemoglobin stable at 13.6. EKG in emergency department with QTc of 372 ms.
At time of this evaluation patient remains in atrial fibrillation with accelerated and at times rapid ventricular response despite being on Cardizem drip. She continues to feel some fatigue, mild dyspnea on exertion and intermittent palpitations.
She denies chest pain, shortness of breath at rest, edema, orthopnea or PND.
PMH:
Paroxysmal atrial fibrillation/flutter w/ RVR
Chronic fatigue x 1 month
Chadsvasc 4 (age, female, htn)
Chronic anticoagulation on Eliquis since 08/23/2023
Recent COVID-19 09/22/2023
Hypertension
Hypothyroidism
Chronic Pain secondary to Spinal Stenosis with Opioid Dependence
Past Medical History
Past Medical History: Other (see HPI)
Past Surgical History: Cholecystectomy
Social History
Tobacco: Former Smoker (quit 1970's)
Alcohol: Occasional (glass of wine 4 x a week)
Drug: Other (chronic opioid use for pain control)
Personal:
Family History
Family History: CAD (father) and Other (Mother stroke)
Allergies / Home Medications
Allergy/AdvReac Type Severity Reaction Status Date / Time
codeine Allergy agitation Verified 10/11/23 13:45
�Medication �Instructions �Recorded �Confirmed �Type
acetaminophen 325 mg tablet 650 mg PO Q6H PRN mild pain/fever 10/11/23 10/11/23 History
apixaban 5 mg tablet (Eliquis) 5 mg PO BID Blood Clot 10/11/23 10/11/23 History
Prevention/Tx
buprenorphine 10 mcg/hour weekly 10 mcg transdermal TH Pain 10/11/23 10/11/23 History
transdermal patch
diltiazem HCl 180 mg 180 mg PO BID Blood Pressure 10/11/23 10/11/23 History
capsule,extended release 24 hr
levothyroxine 75 mcg tablet 75 mcg PO DAILY Thyroid 10/11/23 10/11/23 History
Review of Systems
-
History Source: Patient
All other systems: Negative unless noted
Physical Exam
Vital Signs
Temp Pulse Resp BP Pulse Ox
97.8 F 88 18 108/79 99
10/12/23 06:56 10/12/23 06:56 10/12/23 06:56 10/12/23 03:52 10/12/23 06:56
GEN: No distress, awake, Ox3
HEENT: supple, anicteric, mmm
LUNGS: CTA, no wheezes/rales
CV: Irreg irreg, S1/S2, no murmur, rub or gallops
ABD: soft, BS+, NT/ND
EXT: No edema, clubbing or cyanosis
NEURO: Gross non-focal
SKIN: red irritated area from defibrillation patches on bed and chest
Lab Results
10/12/23 04:03
10/12/23 04:03
Impression / Plan
-
Family Physician: Bayron Dumont
Dry Man: Dr. Diaz
Impression:
Presents 10/11/2023 with fatigue, palpitations/rapid heart rate
Paroxysmal atrial fibrillation w/ RVR
Chronic fatigue x 1 month
Chadsvasc 4 (age, female, htn)
Chronic anticoagulation on Eliquis since 08/23/2023
Recent COVID-19 09/22/2023
Hypertension
Hypothyroidism
Chronic Pain secondary to Spinal Stenosis with Opioid Dependence
Echo 09/13/2023: EF 64%, mild cLVH. Mod LAE. Mild MR. Mild-mod TR. Mild AI. PAP 41-46 mmHg
7 day Outpt monitor completed 08/18/23: Sinus rhythm with PAF ~19.2% burden, avg HR 119 bpm when in Afib. Brief atrial flutter (16 episodes), PAT. PACs 5%, 2 brief runs NSVT and rare PVCs. In SR min 48-122 bpm, avg 76 bpm
Plan:
-Presented 10/11/2023 with palpitations/rapid heart beats and fatigue found to be in paroxysmal atrial fibrillation w/ RVR.
-Attempted and failed CV x 3 in ED. Now on Cardizem gtt remains in symptomatic atrial fibrillation w/ poorly controlled heart rates.
-Has been on Eliquis and Cardizem since August 23, 2023. patient denies missing skipping any doses of Eliquis in the last 6 weeks.
-Discussed initiation of AAD therapy with Sotalol and patient is agreeable. Will start 80 mg twice daily.
-Wean Cardizem drip with improvement of heart rate
-Also discussed option of EP evaluation with eventual ablation and patient wants to think about it.
-If patient fails to convert after fifth dose discussed proceeding with elective cardioversion in an attempt to restoring sinus rhythm.
-EKG on 10/11/2023 in emergency department QTc 372 ms. Will repeat EKG with better rate control this morning.
-Follow QTc interval per protocol
-Ongoing fatigue likely due to atrial fibrillation w/ RVR and post COVID sequelae. Hopefully will improve with congregation of sinus rhythm
-TSH 7.24, free T4 1.64. Continue Levothyroxine
-BUN 12, creatinine 0.7, estimated creatinine clearance 53 mL/min, estimated GFR greater than 60
-Patient does complain of irritation and itchiness at site of defibrillation pads. Will apply Silvadene as needed
HPI 10/12/2023:
Patient is an 83-year-old female with past medical history of paroxysmal atrial fibrillation flutter, chronic anticoagulation on Eliquis, hypertension, hypothyroidism, chronic pain medication for spinal stenosis who presented to emergency department
10/11/2023 with ongoing fatigue x 1 month as well as palpitations and elevated heart rate. Patient was diagnosed with paroxysmal atrial fibrillation/flutter in late July 2023 after wearing outpatient monitor. She was initiated on anticoagulation
with Eliquis after having a [id number] score of 4. She underwent an echocardiogram on 09/13/2023 and was noted to be in atrial fibrillation with rapid ventricular response at that time. Her outpatient Cardizem dosing was increased to 180 mg twice
a day. She did present for cardioversion on 09/16/2023 and was back in sinus rhythm. Shortly after that she developed COVID-19 infection and has felt quite poorly since then with ongoing fatigue and palpitations. Due to elevated heart rate she
presented to emergency department. She was found to be in atrial fibrillation with rapid ventricular response. Cardioversion x 3 was attempted in emergency department however patient did not maintain sinus rhythm after each attempt. She was
placed on IV diltiazem drip for rate control. TSH 7.24 with free T41.64. Hemoglobin stable at 13.6. EKG in emergency department with QTc of 372 ms.
At time of this evaluation patient remains in atrial fibrillation with accelerated and at times rapid ventricular response despite being on Cardizem drip. She continues to feel some fatigue, mild dyspnea on exertion and intermittent palpitations.
She denies chest pain, shortness of breath at rest, edema, orthopnea or PND.
Data Reviewed
-
EKG: Report Reviewed by me, Discussed with Physician, Discussed with Nurse and Discussed with Patient
Medical Tests (Nuc Med, Echo etc): Report Reviewed by me, Discussed with Physician, Discussed with Nurse and Other (outpt echo from 09/13/2023)
Labs: Labs Reviewed by me, Discussed with Physician, Discussed with Nurse and Discussed with Patient
Old Records: Reviewed
[2023-10-12] MEDS: CARDIZEM CD 180 MG PO (09:25)
[2023-10-12] MEDS: ELIQUIS 5 MG PO ×2 (09:25→19:30)
--- NOTE | 2023-10-12 09:42 | CM ---
Reviewed chart. Met with to review discharge plans. she states prior to admission she resides alone in a one story condo with four steps to enter. She states prior to admission she was independent with ambulation and adls. She states she
does not have any DME in the home. She states she has a prescription plan and uses [facility]. Medical work-up in progress. The discharge plan is to return home when medically stable.
[2023-10-12] MEDS: BETAPACE 80 MG PO ×2 (10:49→22:03)
[2023-10-12] MEDS: SILVADENE 1 APPLIC TOPICAL (10:51)
--- NOTE | 2023-10-12 11:18 | PTCARENOTE ---
Received patient this morning, cardizem infusing at 10mg/hr. Remains in AF with rates up to the 130's with activity but quickly with rest recovers with rate in the 80's. Complaining of itching upper back and anterior chest from CV. Area reddened,
silvadene cream ordered and applied. Patient started on sotalol as ordered. Resting in bed now, call lang in reach, will recheck EKG as per protocol.
--- NOTE | 2023-10-12 13:01 | W.PN.HOSP.TC ---
Today's Communication/Plan
-
rate control
Sotalol
Assessment / Plan
Assessment / Plan
83-year-old female with history of atrial fibrillation/flutter came with fatigue for the past 1 month and rapid heart rates. Patient was attempted cardioversion in the ER without success. She was started on Cardizem and admitted.
CVS: S1-S2 irregular, short systolic murmur at apex
Chest: CTA B/L
Abdomen: Soft, NT / Bowel sounds present
Extremities: No edema, normal pulses
ASSISTANT TO THE DIRECTOR: Non focal exam
Echo 09/13/2023-because LV systolic and mild concentric LV hypertrophy. EF 64%. Normal RV size and systolic function. Biatrial dilation. Mild MR. Mild to moderate TR. Pulmonary pressure 41 to 48 mmHg. Mild pulmonary regurgitation.
# Atrial fibrillation with rapid rates
Continue Cardizem drip
Failed cardioversion attempts in the ER
On Eliquis as outpatient-continue. Patient denies missing any doses.
Cardizem 180 mg twice daily as outpatient
Sotalol 80 mg twice daily started
EP evaluation as outpatient
Slightly elevated TSH with normal T4-will need repeat in 1 month
# Mild hyponatremia-watch
# Fatigue for the past 1 month likely secondary to rates related to A-fib and COVID-19 infection
# COVID-19 infection end of August 2023
# Hypertension-on Cardizem as outpatient
# Hypothyroidism-Synthroid 75 mcg daily
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
On buprenorphine patch
# History of temporal arteritis: By biopsy treated with prednisone for 2 years from July 2019
# Ex-smoker
# DVT prophylaxis-Eliquis
# Full code
Discussed with cardiology
D/W daughter at bed side
D/W RN
Anticipated Discharge: 24 - 48 hours
Subjective/Interval History
-
Date of Service: October 12, 2023
Objective Data
-
Labs:
Laboratory Results
10/12/23
04:03
WBC 7.7
Hgb 13.6
Hct 39.1
Plt Count 233
Sodium 134 L
Potassium 3.9
Chloride 101
Carbon Dioxide 21 L
BUN 12
Creatinine 0.7
Glucose 101 H
Calcium 9.2
Vital Signs:
Vital Signs
Temp Pulse Resp BP Pulse Ox
97.7 F 87 16 101/64 99
10/12/23 11:39 10/12/23 12:15 10/12/23 11:39 10/12/23 12:12 10/12/23 11:39
I&O
10/11/23 10/12/23 10/13/23
06:59 06:59 06:59
Intake Total 100 / 100
Balance 100 / 100
[2023-10-12] MEDS: MAGNESIUM SULFATE 102 GRAMS IV (14:37)
--- NOTE | 2023-10-12 14:54 | PTCARENOTE ---
Patient sitting oob in the chair visiting with her daughter, noted to now be in [place]. Cardizem gtt stopped, patient returned to bed and EKG done which showed junctional rhythm, BP 108/56. Patient stating she feels 'off'. Complaining of some achy
muscle like feeling in her shoulders and upper arms. Notified cardiology and will come see the patient.
--- NOTE | 2023-10-12 23:40 | PTCARENOTE ---
Pt rec'd at change of shift awake,alert with no c/o pain. B/L upper shoulder and neck discomfort from earlier completely resolved. Sinus on telemetry. Second dose of Sotalol for day staggered to 2200 after first dose not started until 1040. 2 hr
post ecg scheduled for midnight.
[2023-10-13] MEDS: SILVADENE 1 APPLIC TOPICAL ×2 (00:10→22:36)
[2023-10-13 05:04] VITALS: BP 146/66
[2023-10-13 05:17] VITALS: BMI 20.1
[2023-10-13] MEDS: SYNTHROID 75 MCG PO (05:18)
[2023-10-13 05:56] LABS: Blood Urea Nitrogen 14 mg/dl (7-17); Calcium 9.2 mg/dl (8.4-10.2); Carbon Dioxide 26 mmol/L (22-30); Chloride 101 mmol/L (98-107); Estimated Creatinine Clearance 47 ml/min; Glucose 92 mg/dl (70-99); Potassium 4.1 mmol/L (3.5-5.1); Sodium 133 mmol/L (135-145); eGFR > 60.00
[2023-10-13 06:55] VITALS: BP 140/70
--- NOTE | 2023-10-13 08:39 | W.PN.CARDCBS ---
Addendum entered and electronically signed by Catalino Orr MD 10/13/23 10:06:
I saw and examined the patient.
The Complex Director's note was reviewed and I agree with the note.
Comment: Briefly, 83-year-old man past medical history of paroxysmal atrial fibrillation presenting with A-fib with RVR to [facility] emergency department
She failed direct-current cardioversion and was subsequently admitted for sotalol loading
With the initiation of sotalol she converted to normal sinus rhythm
Monitor on telemetry, check electrolytes, serial ECGs
Continue sotalol loading, will receive fifth dose tomorrow morning and could potentially be discharged following this
Original Note:
Today's Communication / Plan
-
Cont sotalol 80 mg BID, QTc stable
5th dose of sotalol to be given morning and if stable QTc two hours later then patient can be d/c'd
Impression / Plan
-
Family Physician: Bayron Dumont
Payroll Manager: Dr. Diaz
Impression:
Presents 10/11/2023 with fatigue, palpitations/rapid heart rate
Paroxysmal atrial fibrillation w/ RVR 10/11/23
unsuccessful CV x3 in the ER 10/11/23
Sotalol loading started 10/12/23
Chronic fatigue x 1 month
Chronic anticoagulation on Eliquis since 08/23/2023
Recent COVID-19 09/22/2023
Hypertension
Hypothyroidism
Chronic Pain secondary to Spinal Stenosis with Opioid Dependence
7 day Outpt monitor completed 08/18/23: Sinus rhythm with PAF ~19.2% burden, avg HR 119 bpm when in Afib. Brief atrial flutter (16 episodes), PAT. PACs 5%, 2 brief runs NSVT and rare PVCs. In SR min 48-122 bpm, avg 76 bpm
Echo 09/13/2023: EF 64%, mild cLVH. Mod LAE. Mild MR. Mild-mod TR. Mild AI. PAP 41-46 mmHg
Plan:
-Remains in SR following spontaneous conversion with sotalol loading 10/12/23
-ECG reviewed by me on 10/13/23, QTc 454 ms following 2nd dose of sotalol 10/12/23 PM.
-Cont sotalol 80 mg q 12 hours, 5th dose is scheduled for 10/14/23 AM
-Transient junctional rhythm while on Cardizem gtt and sotalol has improved by review of tele 10/13/23.
-Outpatient dose of Cardizem CD 180 mg BID on hold for junctional bradycardia on 10/12/23
-Cont usual dose of Eliquis 5 mg BID (age 83, wt 54.74 kg, Cre 0.8)
-TSH 7.24, free T4 1.64. Continue Levothyroxine
HPI 10/12/2023:
Patient is an 83-year-old female with past medical history of paroxysmal atrial fibrillation flutter, chronic anticoagulation on Eliquis, hypertension, hypothyroidism, chronic pain medication for spinal stenosis who presented to emergency department
10/11/2023 with ongoing fatigue x 1 month as well as palpitations and elevated heart rate. Patient was diagnosed with paroxysmal atrial fibrillation/flutter in late July 2023 after wearing outpatient monitor. She was initiated on anticoagulation
with Eliquis after having a [id number] score of 4. She underwent an echocardiogram on 09/13/2023 and was noted to be in atrial fibrillation with rapid ventricular response at that time. Her outpatient Cardizem dosing was increased to 180 mg twice
a day. She did present for cardioversion on 09/16/2023 and was back in sinus rhythm. Shortly after that she developed COVID-19 infection and has felt quite poorly since then with ongoing fatigue and palpitations. Due to elevated heart rate she
presented to emergency department. She was found to be in atrial fibrillation with rapid ventricular response. Cardioversion x 3 was attempted in emergency department however patient did not maintain sinus rhythm after each attempt. She was
placed on IV diltiazem drip for rate control. TSH 7.24 with free T41.64. Hemoglobin stable at 13.6. EKG in emergency department with QTc of 372 ms.
At time of this evaluation patient remains in atrial fibrillation with accelerated and at times rapid ventricular response despite being on Cardizem drip. She continues to feel some fatigue, mild dyspnea on exertion and intermittent palpitations.
She denies chest pain, shortness of breath at rest, edema, orthopnea or PND.
Progress Note - Payroll Manager
Subjective
Date of Service: October 13, 2023
Marion lightheaded at times yesterday, but back to normal today
Objective
Labs:
10/12/23 04:03
10/13/23 05:11
Labs
Hgb 13.6 g/dL (12.0-16.0) 10/12/23 04:03
Hct 39.1 % (37.0-47.0) 10/12/23 04:03
Plt Count 233 10^3/uL (130-400) 10/12/23 04:03
Sodium 133 mmol/L (135-145) L 10/13/23 05:11
Potassium 4.1 mmol/L (3.5-5.1) 10/13/23 05:11
BUN 14 mg/dl (7-17) 10/13/23 05:11
Creatinine 0.8 mg/dL (0.6-1.0) 10/13/23 05:11
Glucose 92 mg/dl (70-99) 10/13/23 05:11
Vital Signs and I&O:
Vital Signs
Temp Pulse Resp BP Pulse Ox
97.5 F 75 14 140/70 99
10/13/23 06:53 10/13/23 07:15 10/13/23 06:53 10/13/23 06:55 10/13/23 06:53
Vital Signs
Temp Pulse Resp BP Pulse Ox
97.5 F 75 14 140/70 99
10/13/23 06:53 10/13/23 07:15 10/13/23 06:53 10/13/23 06:55 10/13/23 06:53
Intake & Output
10/11/23 10/12/23 10/13/23 10/14/23
06:59 06:59 06:59 06:59
Intake Total 100 / 100 102 / 102
Balance 100 / 100 102 / 102
Physical Exam
Physical Exam
GEN: NAD. AAOx3
HEENT: EOMI, MMM
LUNGS: CTA B/L
CV: SR on tele
ABD: ND
EXT: No edema B/L
NEURO: Gross non-focal
SKIN: Red irritated area from defibrillation patches on bed and chest
[2023-10-13] MEDS: ELIQUIS 5 MG PO ×2 (08:59→19:50)
[2023-10-13] MEDS: FLUSH (NSS) 1 FLUSH IV (08:59)
[2023-10-13] MEDS: BETAPACE 80 MG PO ×2 (08:59→19:49)
--- NOTE | 2023-10-13 10:26 | PTCARENOTE ---
Received patient this morning oob in her room. Remains in SR, no complaints offered, feels much better than yesterday. Given dose #3 of sotalol, will check EKG in 2 hours.
[2023-10-13 11:19] VITALS: BP 129/66
--- NOTE | 2023-10-13 12:25 | W.PN.HOSP.TC ---
Today's Communication/Plan
-
Sotalol loading
Assessment / Plan
Assessment / Plan
83-year-old female with history of atrial fibrillation/flutter came with fatigue for the past 1 month and rapid heart rates. Patient was attempted cardioversion in the ER without success. She was started on Cardizem and admitted.
CVS: S1-S2 regular, short systolic murmur at apex
Chest: CTA B/L
Abdomen: Soft, NT / Bowel sounds present
Extremities: No edema, normal pulses
STILL OPERATOR: Non focal exam
Echo 09/13/2023-because LV systolic and mild concentric LV hypertrophy. EF 64%. Normal RV size and systolic function. Biatrial dilation. Mild MR. Mild to moderate TR. Pulmonary pressure 41 to 48 mmHg. Mild pulmonary regurgitation.
# Atrial fibrillation with rapid rates
Converted to SR
Failed cardioversion attempts in the ER on admission
On Eliquis as outpatient-continue. Patient denies missing any doses.
Cardizem 180 mg twice daily as outpatient on hold for junctional Bradycardia
Sotalol 80 mg twice daily started, 2 more loading doses left
EP evaluation as outpatient
Slightly elevated TSH with normal T4-will need repeat in 1 month
# Mild hyponatremia-
# Fatigue for the past 1 month likely secondary to rates related to A-fib and COVID-19 infection
# COVID-19 infection end of August 2023
# Hypertension-on Cardizem as outpatient. BP stable now.
# Hypothyroidism-Synthroid 75 mcg daily
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
On buprenorphine patch
# History of temporal arteritis: By biopsy treated with prednisone for 2 years from July 2019
# Ex-smoker
# DVT prophylaxis-Eliquis
# Full code
Discussed with cardiology
D/W RN
Anticipated Discharge: Within 24 hours
Subjective/Interval History
-
Date of Service: October 13, 2023
Objective Data
-
Labs:
Laboratory Results
10/13/23
05:11
Sodium 133 L
Potassium 4.1
Chloride 101
Carbon Dioxide 26
BUN 14
Creatinine 0.8
Glucose 92
Calcium 9.2
Vital Signs:
Vital Signs
Temp Pulse Resp BP Pulse Ox
97.7 F 65 16 129/66 99
10/13/23 11:17 10/13/23 11:19 10/13/23 11:17 10/13/23 11:19 10/13/23 06:53
I&O
10/12/23 10/13/23 10/14/23
06:59 06:59 06:59
Intake Total 100 / 100 102 / 102
Balance 100 / 100 102 / 102
[2023-10-13 13:05] LABS: Magnesium 1.9 mg/dl (1.6-2.3)
--- NOTE | 2023-10-13 13:39 | CM ---
Reviewed chart. Met with Mrs. Humphrey to review discharge plans. She states she is feeling well and maybe able to go home soon. Prior to admission she resides alone in first floor condo with four steps to enter. Prior to admission she was
independent with ambulation and adls. She does not have any DME in the home. She has a prescription plan and uses [facility]. Medical work-up in progress. The discharge plan is to return home when medically stable.
[2023-10-13 15:13] VITALS: BP 124/79
[2023-10-13 19:14] VITALS: BP 148/66
--- NOTE | 2023-10-13 22:02 | PTCARENOTE ---
Pt received at start of shift, HR SR. Discussed plan of care w/ pt, pt states understanding. Sotalol dose #4 given, QTc 452. Pt denies feeling 'off' (how pt stated she felt on initial conversion to SR), SOB, or lightheadedness/dizziness at this
time. Informed to notify RN if any changes, call lang within reach.
[2023-10-13 22:26] VITALS: BP 149/74
[2023-10-14] VITALS (8 sets, daily range): BP systolic 139–178; BP diastolic 67–86; BMI 20.2
[2023-10-14 05:23] LABS: Blood Urea Nitrogen 15 mg/dl (7-17); Calcium 9.2 mg/dl (8.4-10.2); Carbon Dioxide 23 mmol/L (22-30); Chloride 101 mmol/L (98-107); Estimated Creatinine Clearance 47 ml/min; Glucose 86 mg/dl (70-99); Potassium 4.2 mmol/L (3.5-5.1); Sodium 132 mmol/L (135-145); eGFR > 60.00
[2023-10-14] MEDS: SYNTHROID 75 MCG PO (06:22)
--- NOTE | 2023-10-14 07:47 | W.PN.CARDCBS ---
Addendum entered and electronically signed by Gurpreet Dias DO 10/14/23 10:28:
I saw and examined the patient.
The Security Systems Manager's note was reviewed and I agree with the note.
Comment:
Plan:
Cont Sotalol
QTc remains stable. Remains in sinus.
Start Norvasc for HTN. off Cardizem secondary to brief junctional rhythm.
Likely d/c home later today.
Original Note:
Today's Communication / Plan
-
Cont sotalol 80 mg BID, QTc stable, remains in SR
Start amlodipine 5 mg daily for HTN now that Cardizem CD has been stopped due to transient junctional bradycardia
Likely d/c to home today
Impression / Plan
-
Family Physician: Bayron Dumont
Resources Representative: Dr. Diaz
Impression:
Presents 10/11/2023 with fatigue, palpitations/rapid heart rate
Paroxysmal atrial fibrillation w/ RVR 10/11/23
unsuccessful CV x3 in the ER 10/11/23
Sotalol loading started 10/12/23
Chronic fatigue x 1 month
Chronic anticoagulation on Eliquis since 08/23/2023
Recent COVID-19 09/22/2023
Hypertension
Hypothyroidism
Chronic Pain secondary to Spinal Stenosis with Opioid Dependence
7 day Outpt monitor completed 08/18/23: Sinus rhythm with PAF ~19.2% burden, avg HR 119 bpm when in Afib. Brief atrial flutter (16 episodes), PAT. PACs 5%, 2 brief runs NSVT and rare PVCs. In SR min 48-122 bpm, avg 76 bpm
Echo 09/13/2023: EF 64%, mild cLVH. Mod LAE. Mild MR. Mild-mod TR. Mild AI. PAP 41-46 mmHg
Plan:
-Remains in SR following spontaneous conversion with sotalol loading 10/12/23. QTc 452 ms after 4th dose of Tikosyn Wednesday night
-5th dose of Tikosyn scheduled for morning and if stable will then d/c to home on sotalol 80 mg BID
-Outpatient dose of Cardizem CD 180 mg BID has been on hold since admission due to transient junctional bradycardia around the time of Cardizem gtt, failed CV and initial sotalol loading.
-Cont usual dose of Eliquis 5 mg BID (age 83, wt 54.74 kg, Cre 0.8)
-BP higher morning at 177/85, patient has a dull headache. Will try adding amlodipine 5 mg daily
-TSH 7.24, free T4 1.64. Continue Levothyroxine
-Likely d/c to home 10/14/23 afternoon
HPI 10/12/2023:
Patient is an 83-year-old female with past medical history of paroxysmal atrial fibrillation flutter, chronic anticoagulation on Eliquis, hypertension, hypothyroidism, chronic pain medication for spinal stenosis who presented to emergency department
10/11/2023 with ongoing fatigue x 1 month as well as palpitations and elevated heart rate. Patient was diagnosed with paroxysmal atrial fibrillation/flutter in late July 2023 after wearing outpatient monitor. She was initiated on anticoagulation
with Eliquis after having a [id number] score of 4. She underwent an echocardiogram on 09/13/2023 and was noted to be in atrial fibrillation with rapid ventricular response at that time. Her outpatient Cardizem dosing was increased to 180 mg twice
a day. She did present for cardioversion on 09/16/2023 and was back in sinus rhythm. Shortly after that she developed COVID-19 infection and has felt quite poorly since then with ongoing fatigue and palpitations. Due to elevated heart rate she
presented to emergency department. She was found to be in atrial fibrillation with rapid ventricular response. Cardioversion x 3 was attempted in emergency department however patient did not maintain sinus rhythm after each attempt. She was
placed on IV diltiazem drip for rate control. TSH 7.24 with free T41.64. Hemoglobin stable at 13.6. EKG in emergency department with QTc of 372 ms.
At time of this evaluation patient remains in atrial fibrillation with accelerated and at times rapid ventricular response despite being on Cardizem drip. She continues to feel some fatigue, mild dyspnea on exertion and intermittent palpitations.
She denies chest pain, shortness of breath at rest, edema, orthopnea or PND.
Progress Note - Resources Representative
Subjective
Date of Service: October 14, 2023
She has a dull JADE this AM
Objective
Labs:
10/12/23 04:03
10/14/23 04:27
Labs
Hgb 13.6 g/dL (12.0-16.0) 10/12/23 04:03
Hct 39.1 % (37.0-47.0) 10/12/23 04:03
Plt Count 233 10^3/uL (130-400) 10/12/23 04:03
Sodium 132 mmol/L (135-145) L 10/14/23 04:27
Potassium 4.2 mmol/L (3.5-5.1) 10/14/23 04:27
BUN 15 mg/dl (7-17) 10/14/23 04:27
Creatinine 0.8 mg/dL (0.6-1.0) 10/14/23 04:27
Glucose 86 mg/dl (70-99) 10/14/23 04:27
Vital Signs and I&O:
Vital Signs
Temp Pulse Resp BP Pulse Ox
97.8 F 70 20 173/81 98
10/14/23 07:12 10/14/23 07:45 10/14/23 07:12 10/14/23 07:14 10/14/23 07:12
Vital Signs
Temp Pulse Resp BP Pulse Ox
97.8 F 70 20 173/81 98
10/14/23 07:12 10/14/23 07:45 10/14/23 07:12 10/14/23 07:14 10/14/23 07:12
Intake & Output
05/2110/13/23 10/14/23 10/15/23
06:59 06:59 06:59 06:59
Intake Total 100 / 100 102 / 102 480 / 480
Balance 100 / 100 102 / 102 480 / 480
Physical Exam
Physical Exam
GEN: NAD. AAOx3
HEENT: EOMI, MMM
LUNGS: No audible wheeze
CV: SR on tele
ABD: ND
EXT: No edema B/L
NEURO: Gross non-focal
SKIN: Red irritated area from defibrillation patches on bed and chest
[2023-10-14] MEDS: BETAPACE 80 MG PO (08:15)
[2023-10-14] MEDS: ELIQUIS 5 MG PO (08:15)
[2023-10-14] MEDS: SILVADENE 1 APPLIC TOPICAL (08:17)
[2023-10-14] MEDS: NORVASC 5 MG PO (09:14)
[2023-10-14 11:49] LABS: Osmolality Urine 349 mOsm/kg (300-900)
[2023-10-14 12:10] LABS: Cortisol, Random 10.4 ug/dl
--- NOTE | 2023-10-14 12:14 | W.PN.HOSP.TC ---
Addendum entered and electronically signed by Abhinav Payan MD 10/14/23 15:00:
discharge time 35 min
Addendum entered and electronically signed by Abhinav Payan MD 10/14/23 13:35:
Dictation- [id number]
Original Note:
Today's Communication/Plan
-
Rpt EKG
Await OSm
Possible discharge
Script for Rpt BMP as OP provided.
Assessment / Plan
Assessment / Plan
83-year-old female with history of atrial fibrillation/flutter came with fatigue for the past 1 month and rapid heart rates. Patient was attempted cardioversion in the ER without success. She was started on Cardizem and admitted.
CVS: S1-S2 regular, short systolic murmur at apex
Chest: CTA B/L
Abdomen: Soft, NT / Bowel sounds present
Extremities: No edema, normal pulses
SCIENTIFIC SYSTEMS ANALYST: Non focal exam
Echo 09/13/2023-because LV systolic and mild concentric LV hypertrophy. EF 64%. Normal RV size and systolic function. Biatrial dilation. Mild MR. Mild to moderate TR. Pulmonary pressure 41 to 48 mmHg. Mild pulmonary regurgitation.
# Atrial fibrillation with rapid rates
Converted to SR
Failed cardioversion attempts in the ER on admission
On Eliquis as outpatient-continue. Patient denies missing any doses.
Cardizem 180 mg twice daily as outpatient on hold for junctional Bradycardia
Sotalol 80 mg twice daily started, Rpt EKG now
EP evaluation as outpatient
Slightly elevated TSH with normal T4-will need repeat in 1 month
# Mild hyponatremia-check serum and urine osm. Add on Serum osm wrong. Re draw
# Fatigue for the past 1 month likely secondary to rates related to A-fib and COVID-19 infection
# COVID-19 infection end of August 2023
# Hypertension-on Cardizem as outpatient. BP stable now.
# Hypothyroidism-Synthroid 75 mcg daily
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
On buprenorphine patch
# History of temporal arteritis: By biopsy treated with prednisone for 2 years from July 2019
# Ex-smoker
# DVT prophylaxis-Eliquis
# Full code
Discussed with cardiology
D/W RN
Anticipated Discharge: Today
Subjective/Interval History
-
Date of Service: October 14, 2023
Objective Data
-
Labs:
Laboratory Results
10/14/23
04:27
Sodium 132 L
Potassium 4.2
Chloride 101
Carbon Dioxide 23
BUN 15
Creatinine 0.8
Glucose 86
Calcium 9.2
Vital Signs:
Vital Signs
Temp Pulse Resp BP Pulse Ox
98.3 F 69 20 139/67 100
10/14/23 11:06 10/14/23 11:30 10/14/23 11:06 10/14/23 11:09 10/14/23 11:06
I&O
10/13/23 10/14/23 10/15/23
06:59 06:59 06:59
Intake Total 102 / 102 480 / 480
Balance 102 / 102 480 / 480
[2023-10-14 12:25] LABS: Urine Sodium 57 mmol/L (30-90)
[2023-10-14 14:33] LABS: Osmolality Serum 278 mOsm/kg (275-300)
--- NOTE | 2023-10-14 14:35 | PTOTSP ---
Patient is independent with all functional mobility. No skilled PT needs at this time. Will D/C PT services.
--- NOTE | 2023-10-14 14:59 | W.DS.TRANS ---
DC Summary - Nurse Assessor
-
Discharge Instructions:
Sleep Apnea Risk Low
Discharge Diagnosis/Procedures Paroxysmal atrial fibrillation, unsuccessful
cardioversion in the ER 10/11/23, sotalol loading
, hypertension
Diet Low Sodium
Activity As tolerated
Driving Restrictions As prior to admission
Bathing Restrictions None
Blood Work Thyroid function tests 6 weeks
Instructions:
Stand-Alone Forms:
Changes to Home Medications: No
Discharge Medications:
DC Medications w/original date entered in [facility]
acetaminophen 325 mg tablet 650 mg PO Q6H PRN mild pain/fever 10/11/23
apixaban 5 mg tablet (Eliquis) 5 mg PO BID Blood Clot Prevention/Tx 10/11/23
buprenorphine 10 mcg/hour weekly transdermal patch 10 mcg transdermal TH Pain 10/11/23
levothyroxine 75 mcg tablet 75 mcg PO DAILY Thyroid 10/11/23
amlodipine 5 mg tablet 5 mg PO DAILY Blood pressure #30 tabs 10/14/23
sotalol 80 mg tablet 80 mg PO Q12 Arrhythmia #60 tabs 10/14/23
Home Medication Changes
Cardizem stopped
Sotalol and amlodipine new
Pending Results: No
[2023-10-14 15:25] LABS: Osmolality Serum 273 mOsm/kg (275-300)
--- NOTE | 2023-10-14 16:23 | PTCARENOTE ---
Pt seen by and SIOBHAN Ruth. Telemetry and IV device removed. Discharge instructions reviewed with pt regarding medications and their possible side effects, reporting cares and concerns and follow up appt's and lab tests. Very good
understanding verbalized. pt escorted out via wheelchair and pt discharged to home.
== END 2023-10-14 15:55 | disposition home or self-care (01) | DRG 309 ==
LOC: IVU 20:34
PROVIDERS: Physician Assistant Medical; ADMITTING PHYSICIAN Hospitalist; ATTENDING PHYSICIAN Hospitalist; EMERGENCY PHYSICIAN Emergency Medicine; FAMILY PHYSICIAN Family Medicine; OTHER PHYSICIAN Internal Medicine Cardiovascular Disease
PROC: 5A2204Z Restoration of Cardiac Rhythm, Single (ICD-10-PCS; 2023-10-11)
DX: I48.0 Paroxysmal atrial fibrillation (principal); E87.1 Hypo-osmolality and hyponatremia; F11.20 Opioid dependence, uncomplicated; Z79.01 Long term (current) use of anticoagulants; I10 Essential (primary) hypertension; E03.9 Hypothyroidism, unspecified; I48.92 Unspecified atrial flutter; U09.9 Post COVID-19 condition, unspecified
CPT/HCPCS: 80048; 80076; 82533; 83735; 83930; 83935; 84132; 84300; 84439; 84443; 85025; 85027; 92960; 93005; 96361; 96374; 96376; 97116; 97162; 97166; 99152; 99291